=== PATIENT | male | born 1950 | race Caucasian/White ===

== ENCOUNTER 2017-04-17 21:29 | Emergency (ER) | payer MEDICARE, OTHER ==
[2017-04-17] MEDS ORDERED: Pantoprazole IV* 40 MG IV ONE (23:21)
[2017-04-17 23:52] LABS: Hematocrit 39 % (42-52); Hemoglobin 13.1 g/dl (14.0-18.0); Mean Corpuscular HGB Conc 33 g/dl (31-36); Mean Corpuscular Hemoglobin 30 pg (27-31); Mean Corpuscular Volume 88 fL (80-94); Mean Platelet Volume 8 um3 (7.4-10.4); Red Blood Count 4.44 10^6/ul (4.0-5.4); Red Cell Distribution Width 13 % (10.5-15); White Blood Count 3.9 10^3/ul (3.5-10.8)
[2017-04-18 00:05] LABS: Troponin I 0.01 ng/mL (<0.04)
[2017-04-18 01:17] LABS: BUN/Creatinine Ratio 19.3 (8-20); Calcium 8.7 mg/dL (8.6-10.3); EGFR African American 111.1 (>60); EGFR Non-African American 86.4 (>60); Potassium 3.7 mmol/L (3.5-5.0)
[2017-04-18 01:18] LABS: Albumin 3.8 g/dL (3.2-5.2); Globulin 2.3 g/dL (2-4); Total Bilirubin 0.5 mg/dL (0.2-1.0); Total Protein 6.1 g/dL (6.4-8.9)
--- NOTE | 2017-04-18 01:34 | ED ---
Rob Monterroso SooYoung, scribed for Jaquelin Motley MD on 04/17/17 at 2256 . HPI Chest Pain - HPI Summary HPI Summary: A 66 y/o M presents to ED with c/o intermittent episodes of CP from mid- to lower-sternum over the past 3-4 days. Today's episode lasted approx 3-4 hours and radiated into his back. CP has mostly resolved at bedside. Associated sx: palpitations described as fluttering; difficulty sleeping; low blood sugars. Denies vomiting. Aggravating factors: laying down. Pert PMHx: HTN, DM. Pt takes 28mg Lantis at night. He usually checks his sugars in the AM when he wakes up. Pt eats dinner at approx. 1700 nightly. Also takes baby aspirin, Lisinopril, 2, 000mg Metformin, and a statin. He states he had a stress test a few years ago. - History of Current Complaint Chief Complaint: EDChestPainROMI Time Seen by Provider: 04/17/17 22:54 Hx Obtained From: Patient Onset/Duration: Still Present Timing: Intermittent, Lasting Hours - but mostly resolved Initial Severity: Moderate Current Severity: Mild Pain Intensity: 6 Pain Scale Used: 0-10 Numeric Chest Pain Location: Mid Sternal, Lower Sternal Chest Pain Radiates: Yes Chest Pain Radiates To:: Back Aggravating Factor(s): Position Associated Signs and Symptoms: Positive: Palpitations, Other: - difficulty sleeping, low blood sugars. Negative: Vomiting - Allergy/Home Medications Allergies/Adverse Reactions: Allergies Allergy/AdvReac Type Severity Reaction Status Date / Time Sulfa Antibiotics Allergy Rash Verified 11/02/15 19:54 PMH/Surg Hx/FS Hx/Imm Hx Previously Healthy: No Endocrine/Hematology History: Reports: Hx Diabetes Denies: Hx Thyroid Disease Cardiovascular History: Reports: Hx Hypertension Respiratory History: Reports: Hx Asthma Denies: Hx Chronic Obstructive Pulmonary Disease (COPD) GI History: Denies: Hx Ulcer - Surgical History Surgery Procedure, Year, and Place: removal of skin patch from lt upper arm Infectious Disease History: No Infectious Disease History: Reports: Traveled Outside the [place] in Last 30 Days - [place] 04/13 Denies: Hx Hepatitis, Hx Human Immunodeficiency Virus (HIV) - Family History Known Family History: Positive: Hypertension, Diabetes - Social History Occupation: Retired Lives: With Family Alcohol Use: Rare Hx Substance Use: No Substance Use Type: Reports: None Hx Tobacco Use: No Smoking Status (MU): Never Smoked Tobacco Have You Smoked in the Last Year: No Review of Systems Positive: Other - difficulty sleeping, low blood sugars. Negative: Fever Positive: Palpitations, Chest Pain Negative: Vomiting All Other Systems Reviewed And Are Negative: Yes Physical Exam - Summary Physical Exam Summary: VITAL SIGNS: Reviewed. GENERAL: Patient is a well-developed and nourished MALE who is lying comfortable in the stretcher. Patient is not in any acute respiratory distress. HEAD AND FACE: No signs of trauma. No ecchymosis, hematomas or skull depressions. No sinus tenderness. EYES: PERRLA, EOMI x 2, no injected conjunctiva, no nystagmus. EARS: Hearing grossly intact. Ear canals and tympanic membranes are within normal limits. MOUTH: Oropharynx is within normal limits. NECK: Supple, trachea is midline, no adenopathy, no JVD, no carotid bruit, no c- spine tenderness, neck with full ROM. CHEST: Symmetric, no tenderness at palpation LUNGS: Clear to auscultation bilaterally. No wheezing or crackles. CVS: Regular rate and rhythm, S1 and S2 present, no murmurs or gallops appreciated. ABDOMEN: Soft, non-tender. No signs of distention. No rebound, no guarding, and no masses palpated. Bowel sounds are normal. EXTREMITIES: FROM in all major joints, no edema, no cyanosis, no clubbing. NEURO: Alert and oriented x 3. No acute neurological deficits. Speech is normal and follows commands. SKIN: Dry and warm Triage Information Reviewed: Yes Vital Signs On Initial Exam: Initial Vitals Temp Pulse Resp BP Pulse Ox 98.1 F 77 16 184/84 97 04/17/17 21:37 04/17/17 21:37 04/17/17 21:37 04/17/17 21:37 04/17/17 21:37 Vital Signs Reviewed: Yes Diagnostics - Vital Signs Vital Signs Temp Pulse Resp BP Pulse Ox 04/17/17 21:48 75 04/17/17 21:37 98.1 F 77 16 184/84 97 - Laboratory Result Diagrams: 04/17/17 23:37 04/17/17 23:37 Lab Statement: Any lab studies that have been ordered have been reviewed, and results considered in the medical decision making process. - Radiology CXR Xray Interpretation: No Acute Changes - See [facility] for full report. Radiology Interpretation Completed By: ED Physician - EKG 2633 Cardiac Rate: NL EKG Rhythm: Sinus Rhythm - 70bpm EKG Interpretation: Normal axis. Normal interval. No ischemic changes. Re-Evaluation - Re-Evaluation 1 Re-Evaluation Time: 01:30 Change: Improved Comment: Pt is CP-free. Discussed results with pt. Pt voiced understanding. Chest Pain Course/Dx - Course Course Of Treatment: A 66 y/o M presents to ED with c/o intermittent episodes of CP from mid- to lower-sternum over the past 3-4 days. Today's episode lasted approx 3-4 hours and radiated into his back. CP has mostly resolved at bedside. Associated sx: palpitations described as fluttering; difficulty sleeping; low blood sugars. Denies vomiting. Aggravating factors: laying down. Pert PMHx: HTN , DM. Pt takes 28mg Lantis at night. He usually checks his sugars in the AM when he wakes up. Pt eats dinner at approx. 1700 nightly. Also takes baby aspirin, Lisinopril, 2,000mg Metformin, and a statin. He states he had a stress test a few years ago. Pt given Protonix in ED. Labs results are without significant abnormalities. CXR is negative. Upon reeval pt is CP-free. CP most likely stemming from acid reflux, will D/C home with Prilosec, pt is agreeable and voiced understanding. - Diagnoses Provider Diagnoses: Atypical chest pain, GERD (gastroesophageal reflux disease) Discharge - Discharge Plan Condition: Stable Disposition: HOME Prescriptions: Omeprazole [Prilosec] 20 mg PO BEDTIME #30 cap Patient Education Materials: Omeprazole (By mouth), Gastroesophageal Reflux Disease (ED) Referrals: Thanh Lowe MD [Primary Care Provider] - 3 Days Additional Instructions: Follow up with your primary care provider in 3 days. Please return to the ED if you experience new or worsening symptoms. The documentation as recorded by the Rob hale SooYoung accurately reflects the service I personally performed and the decisions made by me, Jaquelin Motley MD.
[2017-04-18 01:43] VITALS: BP 143/92
--- NOTE | 2017-04-18 07:46 | RAD ---
INDICATION: Chest pain. COMPARISON: Comparison is made with prior chest x-ray study from August 01, 2014. TECHNIQUE: A portable view of the chest was obtained. FINDINGS: Cardiac and mediastinal contours appear to be within normal limits. The lungs are clear. No pleural effusion is seen. IMPRESSION: NO EVIDENCE FOR ACUTE DISEASE.
== END 2017-04-18 01:43 | disposition home or self-care (01) ==
LOC: ED 21:29
DX: R07.89 Other chest pain (principal); R00.2 Palpitations; K21.9 Gastro-esophageal reflux disease without esophagitis
CPT/HCPCS: 36415; 71010; 80053; 82150; 83690; 84484; 85025; 85610; 85730; 93005; 96374; 99283

== ENCOUNTER 2018-10-16 23:19 | Emergency (ER) | payer MEDICARE, BC ==
[2018-10-16 23:45] LABS: Urine Appearance Clear; Urine Bacteria Absent (Absent); Urine Bilirubin Negative (Negative); Urine Blood 2+ (Negative); Urine Color Yellow; Urine Glucose 3+(>=500 mg/dL) (Negative); Urine Ketones Negative (Negative); Urine Nitrite Negative (Negative); Urine Protein Negative (Negative); Urine Red Blood Cell 1+(3-5/hpf) (Absent); Urine Specific Gravity 1.023 (1.010-1.030); Urine Urobilinogen Negative (Negative); Urine White Blood Cell Trace(0-5/hpf) (Absent)
[2018-10-17] MEDS ORDERED: Ketorolac INJ* 30 MG/ML 1 ML VIAL IV PUSH ONE (01:16)
[2018-10-17] MEDS ORDERED: Ondansetron INJ* 2 MG/ML VIAL IV ONE (01:16)
[2018-10-17] MEDS ORDERED: NS 0.9% 1000 ML** 1,000 ML IV ONE (01:16)
--- NOTE | 2018-10-17 01:17 | ED ---
Back Pain - HPI Summary HPI Summary: Pt is a 68 y/o M presenting to the ED with a chief complaint of flank pain first onset at approximately 1900, while he was sitting down. He reports L sided flank pain that radiates to his abd, nausea, diaphoresis, and subjective fever. He has hx of DM, HTN, and HLD. No hx of kidney stones. - History of Current Complaint Chief Complaint: EDFlankPain Stated Complaint: PAIN IN L SIDE OF BACK PER PT Time Seen by Provider: 10/17/18 01:03 Hx Obtained From: Patient Onset/Duration: Gradual Onset, Lasting Hours, Still Present Onset/Duration: Started Hours Ago, Still Present Timing: Constant, Lasting Hours Back Pain Location: Is Diffuse - L flank Severity Initially: Moderate Severity Currently: Severe Pain Intensity: 10 Pain Scale Used: 0-10 Numeric Aggravating Symptom(s): Nothing Alleviating Symptom(s): Nothing Associated Signs And Symptoms: Positive: Fever - Allergies/Home Medications Allergies/Adverse Reactions: Allergies Allergy/AdvReac Type Severity Reaction Status Date / Time MS Sulfa Antibiotics Allergy Rash Verified 10/16/18 23:22 [Sulfa Antibiotics] PMH/Surg Hx/FS Hx/Imm Hx Previously Healthy: Yes Endocrine/Hematology History: Reports: Hx Diabetes Denies: Hx Thyroid Disease Cardiovascular History: Reports: Hx Hypertension Respiratory History: Reports: Hx Asthma Denies: Hx Chronic Obstructive Pulmonary Disease (COPD) GI History: Denies: Hx Ulcer - Surgical History Surgery Procedure, Year, and Place: removal of skin patch from lt upper arm Infectious Disease History: Yes Infectious Disease History: Denies: Hx Hepatitis, Hx Human Immunodeficiency Virus (HIV), Traveled Outside the [place] in Last 30 Days - Family History Known Family History: Positive: Hypertension, Diabetes - Social History Alcohol Use: Rare Hx Substance Use: No Substance Use Type: Reports: None Hx Tobacco Use: No Smoking Status (MU): Never Smoked Tobacco Have You Smoked in the Last Year: No Review of Systems Positive: Fever, Skin Diaphoresis Positive: Nausea Positive: Myalgia - L flank pain All Other Systems Reviewed And Are Negative: Yes Physical Exam - Summary Physical Exam Summary: Appearance: Well-appearing, Well-nourished, lying in bed comfortably Skin: Warm, dry, no obvious rash Eyes: sclera anicteric, no conjunctival pallor ENT: mucous membranes moist, pharynx appears normal Neck: Supple, nontender Respiratory: Clear to auscultation, no signs of respiratory distress Cardiovascular: Normal S1, S2. No murmurs. Normal distal pulses in tibial and radial bilaterally. Abdomen: Soft, nontender, normal active bowel sounds present. No abdominal masses, pulsatile or otherwise. Musculoskeletal: Normal, Strength/ROM Intact Neurological: A&Ox3, awake and alert, mentation is normal, speech is fluent and appropriate Psychiatric: affect is normal, does not appear anxious or depressed Triage Information Reviewed: Yes Vital Signs On Initial Exam: Initial Vitals Temp Pulse Resp BP Pulse Ox 97.0 F 78 17 192/87 96 10/16/18 23:21 10/16/18 23:21 10/16/18 23:21 10/16/18 23:21 10/16/18 23:21 Vital Signs Reviewed: Yes Diagnostics - Vital Signs Vital Signs Temp Pulse Resp BP Pulse Ox 10/16/18 23:21 97.0 F 78 17 192/87 96 - Laboratory Lab Results: Lab Results 10/16/18 Range/Units 23:34 Urine Color Yellow Urine Appearance Clear Urine pH 5.0 (5-9) Ur Specific [place] 1.023 (1.010-1.030) Urine Protein Negative (Negative) Urine Ketones Negative (Negative) Urine Blood 2+ A (Negative) Urine Nitrate Negative (Negative) Urine Bilirubin Negative (Negative) Urine Urobilinogen Negative (Negative) Ur Leukocyte Esterase Negative (Negative) Urine WBC (Auto) Trace(0-5/hpf) (Absent) Urine RBC (Auto) 1+(3-5/hpf) A (Absent) Urine Bacteria Absent (Absent) Urine Glucose 3+(>=500 mg/dl) A (Negative) Result Diagrams: 10/17/18 01:28 10/17/18 01:28 Lab Statement: Any lab studies that have been ordered have been reviewed, and results considered in the medical decision making process. - CT CT abd/pelv CT Interpretation Completed By: Radiologist Summary of CT Findings: 1. A 2.5 mm left mid ureteral stone with hydronephrosis and hydroureter. 2. A 1.6 cm exophytic left renal cyst. Nonspecific bilateral perinephric stranding. 3. A small hiatal hernia. 4. Colonic diverticulosis with no evidence of acute diverticulitis. 5. Enlarged prostate gland. 6. Grade I anterolisthesis of L5 on S1 with bilateral spondylolysis of L5. ED physician has reviewed this report. Back Pain Course/Dx - Course Course Of Treatment: Pt is a 68 y/o M presenting to the ED with a chief complaint of flank pain first onset at approximately 1900, while he was sitting down. He reports L sided flank pain that radiates to his abd, nausea, diaphoresis, and subjective fever. He has hx of DM, HTN, and HLD. No hx of kidney stones. The pt's physical exam is normal. CT abd/pelv shows: 1. A 2.5 mm left mid ureteral stone with hydronephrosis and hydroureter. 2. A 1.6 cm exophytic left renal cyst. Nonspecific bilateral perinephric stranding. 3. A small hiatal hernia. 4. Colonic diverticulosis with no evidence of acute diverticulitis. 5. Enlarged prostate gland. 6. Grade I anterolisthesis of L5 on S1 with bilateral spondylolysis of L5. Pt will be d/c'ed with a dx of kidney stones. He is stable and agreeable with this plan. - Diagnoses Provider Diagnoses: Kidney stones Discharge - Sign-Out/Discharge Documenting (check all that apply): Patient Departure Patient Received Moderate/Deep Sedation with Procedure: No - Discharge Plan Condition: Good Disposition: HOME Prescriptions: Ondansetron ODT TAB* [Zofran 4 MG Odt TAB*] 8 mg PO Q6H PRN #15 tab.odt PRN Reason: Nausea oxyCODONE/Acetamin 5/325 MG* [Percocet 5/325 TAB*] 2 tab PO Q4H PRN #20 tab MDD 6 PRN Reason: Pain Patient Education Materials: Kidney Stones (ED) Referrals: Leeanna Belcher MD [Primary Care Provider] - Jaya Celestin MD [Medical Doctor] - Additional Instructions: If you do not pass the stone in the next few days, contact Dr. Celestin's office for assistance. - Billing Disposition and Condition Condition: GOOD Disposition: Home - Attestation Statements Document Initiated by Scribe: Yes Documenting Scribe: Digna Martínez Provider For Whom Scribe is Documenting (Include Credential): Lázaro Zaman MD. Scribe Attestation: Digna Monterroso, jose danieled for Lázaro Zaman MD. on 10/20/18 at 0439. Scribe Documentation Reviewed: Yes Provider Attestation: The documentation as recorded by the scribe, Digna Martínez accurately reflects the service I personally performed and the decisions made by me, Lázaro Zaman MD. Status of Scribe Document: Viewed
[2018-10-17 01:36] LABS: ABS Lymphocytes 0.5 10^3/ul (1.0-4.8); ABS Monocytes 0.5 10^3/ul (0-0.8); ABS Neutrophils 8.7 10^3/ul (1.5-7.7); Eosinophil % 0.2 %; Hematocrit 41 % (42-52); Hemoglobin 13.6 g/dL (14.0-18.0); Lymphocyte % 4.9 %; Mean Corpuscular HGB Conc 33 g/dL (31-36); Mean Corpuscular Hemoglobin 29 pg (27-31); Mean Corpuscular Volume 88 fL (80-94); Mean Platelet Volume 8.5 fL (7.4-10.4); Platelet Count 201 10^3/uL (150-450); Red Blood Count 4.66 10^6 /uL (4.18-5.48); Red Cell Distribution Width 14 % (10.5-15); White Blood Count 9.7 10^3/uL (3.5-10.8)
[2018-10-17 01:52] LABS: Albumin/Globulin Ratio 1.5 (1-3); BUN/Creatinine Ratio 19.8 (8-20); Calcium 9.3 mg/dL (8.6-10.3); EGFR African American 106.7 (>60); EGFR Non-African American 88.2 (>60); Globulin 2.7 g/dL (2-4); Potassium 4.7 mmol/L (3.5-5.0); Total Bilirubin 0.3 mg/dL (0.2-1.0); Total Protein 6.7 g/dL (6.4-8.9)
[2018-10-17 04:22] VITALS: BP 162/80
== END 2018-10-17 04:20 | disposition home or self-care (01) ==
LOC: ED 23:19
DX: N20.0 Calculus of kidney (principal); R10.84 Generalized abdominal pain; R50.9 Fever, unspecified; R11.0 Nausea; E11.9 Type 2 diabetes mellitus without complications; I10 Essential (primary) hypertension; Z88.2 Allergy status to sulfonamides; E78.5 Hyperlipidemia, unspecified
CPT/HCPCS: 36415; 74176; 80053; 81003; 81015; 85025; 87086; 96361; 96374; 96375; 99283; J1885; J2405